=== PATIENT | male | born 1965 | race Caucasian/White ===

== ENCOUNTER 2024-02-15 07:19 | Day surgery (SDC) | payer BC, OTHER ==
[2024-02-09 12:37] VITALS: BMI 30.4
[2024-02-15] MEDS ORDERED: LIDOCAINE HCL 1%, 10 MG/ML (20ML VIAL) ONE (07:37)
[2024-02-15] MEDS ORDERED: GENTAMICIN SO4 80 MG/2 ML VIAL ONE (07:37)
[2024-02-15] MEDS ORDERED: BUPIVACAINE HCL/PF 0.5% (5MG/ML) 10 ML VIAL ONE (07:37)
[2024-02-15] MEDS ORDERED: DEXAMETHASONE SOD PHOSPHATE 10 MG/1 ML VIAL ONE (07:37)
[2024-02-15] MEDS ORDERED: BENZOIN/ALOE VERA/STORAX/TOLU 58 ML BOTTLE ONE (07:54)
[2024-02-15] MEDS ORDERED: DEXAMETHASONE SOD PHOSPHATE 4 MG/1 ML VIAL ONE (08:47)
[2024-02-15] MEDS ORDERED: MIDAZOLAM HCL 2 MG/2 ML SINGLE DOSE VIAL ONE ×2 (09:03→09:24)
[2024-02-15] MEDS ORDERED: PROPOFOL 60 ML ONE (09:04)
[2024-02-15] MEDS ORDERED: ceFAZolin SODIUM 1 GM VIAL ONE (09:27)
[2024-02-15] MEDS ORDERED: LACTATED RINGERS SOLUTION 1,000 ML IV SCH (10:30)
[2024-02-15 16:00] VITALS: BP 118/74; PULSE 55; RESP 18
[2024-02-15 16:05] VITALS: TEMP 97.2
== END 2024-02-15 12:05 | disposition home or self-care (01) ==
LOC: FASU 07:19
PROVIDERS: ATTEND Podiatrist Foot Surgery
PROC: 0QBP0ZZ Excision of Left Metatarsal, Open Approach (ICD-10-PCS; principal; 2024-02-15 09:36)
DX: M20.12 Hallux valgus (acquired), left foot (principal)
CPT/HCPCS: 73630-TC-LT; 88304-TC; 88311-TC; 94760; C1713; J1100